=== PATIENT | female | born 2005 | race Caucasian/White ===

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

== ENCOUNTER 2025-05-21 03:23 | Emergency (ER) | payer OTHER ==
[~2025-05-21] VITALS: Ht 175.3 cm; Wt 62.9 kg
[~2025-05-21 03:23] MED LIST changes: +LITHIUM CARBON300 M1
[2025-05-21] MEDS ORDERED: LAMOTRIGINE200 MG PO (03:40)
[2025-05-21 04:11] VITALS: BP 119/88
== END 2025-05-21 04:13 | disposition home or self-care (01) ==
LOC: ED 03:23
DX: Z34.92 Encounter for supervision of normal pregnancy, unspecified, second trimester (principal); Z3A.18 18 weeks gestation of pregnancy; Z79.899 Other long term (current) drug therapy
CPT/HCPCS: 99283

== ENCOUNTER 2025-10-12 05:05 | Inpatient (IN) | payer OTHER ==
[~2025-10-12] VITALS: Ht 175.3 cm; Wt 74.8 kg
[~2025-10-12 05:05] MED LIST changes: +LAMOTRIGINE200 MG PO
[2025-10-12 06:10] LABS: AMNISURE ROM TEST POSITIVE
[2025-10-12] MEDS ORDERED: LACTATED RINGER'S 1,000 ML IV SCH (06:45)
[2025-10-12] MEDS ORDERED: MAGNESIUM HYDROXIDE/AL HYDROX 30 ML CUP PO PRN (06:45)
[2025-10-12] MEDS ORDERED: LACTATED RINGER'S 1,000 ML IV PRN (06:45)
[2025-10-12] MEDS ORDERED: TERBUTALINE SULFATE 1 MG/ML AMP SUB-Q PRN (06:45)
[2025-10-12] MEDS ORDERED: CALCIUM CARBONATE 500 MG CHEW PO PRN (06:45)
[2025-10-12] MEDS ORDERED: OXYTOCIN/0.9 % SODIUM CHLORIDE 30 UNITS/500 ML BAG IV SCH (06:45)
[2025-10-12] MEDS ORDERED: LIDOCAINE HCL 1% 30 ML SDV INJ PRN (06:45)
[2025-10-12 07:03] LABS: MCH 32.5 PG (25.6-32.2); MCHC 34.9 g/dL (32.2-35.5); MCV 93.1 fL (79.4-94.8); RBC 4.19 M/uL (3.93-5.22)
[2025-10-12 07:08] VITALS: BP 109/61
[2025-10-12 07:21] LABS: ABO A; ANTIBODY SCREEN NEGATIVE; RH POSITIVE
[2025-10-13] MEDS ORDERED: SEVOFLURANE 250 ML BTL INH ONE (10:34)
[2025-10-13 16:32] LABS: AMPHETAMINES, URINE NEGATIVE (NEGATIVE); BARBITURATES, URINE NEGATIVE (NEGATIVE); BENZODIAZEPINE, URINE NEGATIVE (NEGATIVE); CANNABINOID, URINE NEGATIVE (NEGATIVE); COCAINE, URINE NEGATIVE (NEGATIVE); ECSTASY, URINE NEGATIVE (NEGATIVE); FENTANYL, URINE NEGATIVE (NEGATIVE); METHADONE, URINE NEGATIVE (NEGATIVE); OPIATES, URINE NEGATIVE (NEGATIVE); OXYCODONE, URINE NEGATIVE (NEGATIVE); PHENCYCLIDINE, URINE NEGATIVE (NEGATIVE)
[2025-10-13] MEDS ORDERED: SUCCINYLCHOLINE IN 0.9% NACL 200 MG/10 ML SYRINGE ONE (18:31)
[2025-10-13] MEDS ORDERED: MIDAZOLAM HCL 2 MG/2 ML VIAL ONE (18:31)
[2025-10-13] MEDS ORDERED: fentaNYL citrate 100 MCG/2 ML VIAL ONE ×2 (18:31→18:56)
[2025-10-13] MEDS ORDERED: ROCURONIUM BROMIDE 50 MG/5 ML SYR ONE (18:33)
[2025-10-13] MEDS ORDERED: AZITHROMYCIN 500 MG VIAL ONE (18:39)
[2025-10-13] MEDS ORDERED: OXYTOCIN 10 UNITS/ML VIAL ONE ×2 (18:40→18:47)
[2025-10-13] MEDS ORDERED: TRANEXAMIC ACID IN NACL,ISO-OS 0 ML IV ONE (18:46)
[2025-10-13] MEDS ORDERED: DEXAMETHASONE SOD PHOS 4 MG/ML VIAL ONE (18:47)
[2025-10-13] MEDS ORDERED: SODIUM CHLORIDE 0.9% 20 ML IV ONE (18:47)
[2025-10-13] MEDS ORDERED: Ropivacaine HCl 0.5% 30 ML VIAL ONE (18:47)
[2025-10-13] MEDS ORDERED: SUGAMMADEX SODIUM 200 MG/2 ML ML ONE (19:06)
[2025-10-13] MEDS ORDERED: PROCHLORPERAZINE EDISYLATE 10 MG/2 ML VIAL IV PRN ×2 (19:45→20:00)
[2025-10-13] MEDS ORDERED: IBLOOD GLUCOSE TEST STRIP 1 EA TEST VI PRN (19:45)
[2025-10-13] MEDS ORDERED: fentaNYL citrate 50 MCG/ML SDV IV PRN (19:45)
[2025-10-13] MEDS ORDERED: NALOXONE HCL 0.4 MG SYR IV PRN (19:45)
[2025-10-13] MEDS ORDERED: HYDROmorphone HCL 1 MG/ML SYR IV PRN (19:45)
[2025-10-13] MEDS ORDERED: MIDAZOLAM HCL 2 MG/2 ML VIAL IV PRN (19:45)
[2025-10-13] MEDS ORDERED: MEPERIDINE HCL 25 MG/1 ML VIAL IV PRN (19:45)
[2025-10-13] MEDS ORDERED: ACETAMINOPHEN 1,000 MG/100 ML VIAL ONE (19:59)
[2025-10-13] MEDS ORDERED: LACTATED RINGER'S 1,000 ML IV SCH (19:59)
[2025-10-13] MEDS ORDERED: OXYCODONE HCL 5 MG TAB PO PRN (20:00)
[2025-10-13] MEDS ORDERED: LIDOCAINE 2% VISCOUS 6 ML SYR TOP ONE (20:00)
[2025-10-13] MEDS ORDERED: HYDROCODONE/ACETA 5/325 TAB PO PRN (20:00)
[2025-10-13] MEDS ORDERED: PROMETHAZINE HCL 25 MG SUPP PR PRN (20:00)
[2025-10-13] MEDS ORDERED: IBUPROFEN 600 MG TAB PO SCH (20:00)
[2025-10-13] MEDS ORDERED: METOCLOPRAMIDE HCL 10 MG/2 ML SDV IV PRN (20:00)
[2025-10-13] MEDS ORDERED: OXYTOCIN/0.9 % SODIUM CHLORIDE 500 ML IV SCH ×3 (20:00→20:30)
[2025-10-13] MEDS ORDERED: PROMETHAZINE HCL 25 MG TAB PO PRN (20:00)
[2025-10-13 20:10] LABS: MCH 31.4 PG (25.6-32.2); MCHC 33.2 g/dL (32.2-35.5); MCV 94.4 fL (79.4-94.8); RBC 4.08 M/uL (3.93-5.22)
[2025-10-13 20:21] LABS: INR 0.95 (0.80-1.30); PROTIME 12.0 Sec (11.2-14.2)
[2025-10-13 20:31] VITALS: BP 119/78
[2025-10-13] MEDS ORDERED: SENNOSIDES/DOCUSATE 1 EA TAB PO SCH (21:00)
[2025-10-13] MEDS ORDERED: SIMETHICONE 80 MG CHEW PO SCH (21:00)
--- NOTE | 2025-10-13 21:12 | NUR ---
10/13/252111 Radha Bowens 1940- PT ARRIVES TO PACU ON BED. PT HAS A NATURAL AIRWAY ON 6L OF O2 VIA MASK. BREATHING IS EVEN AND UNLABORED. FIRST FUNDAL CHECK COMPLETED ON ARRIVAL. PT MOANING IN PAIN WITH THE PRESSURE. LR INFUSING IN L AC THAT WAS PLACED DURING PROCEDURE. ALL MONITORS PUT IN PLACE. PT SHAKING, WARM BLANKETS PROVIDED. 1944- PT IS TEARFUL AND ASKING ABOUT BABY AND CRYING. PT IS COMFORTED BY RN. PT EASILY FALLS BACK TO SLEEP. 1950- O2 TURNED OFF AND REMOVED AT THIS TIME. PT IS ABLE TO MAINTAIN SATS ABOVE 95%. 1954- MORE BLOOD NOTED WITH THIS FUNDAL CHECK. PT IS VERY UNCOMFORTABLE WITH THE PRESSURE BUT UNDERSTANDS WHY WE NEED TO. 1957- PT RATES PAIN A 7/10. OFFIRMEV GIVEN PER FRIEDA TOMAS AT BEDSIDE. 2003- LAB AT BEDSIDE. 2014- FUNDAL CHECK COMPLETED. PADS AND CHUCKS PAD REPLACED AT THIS TIME. STAT LOCK PUT IN PLACE FOR MCKEON THAT IS DRAINING CLEAR, YELLOW URINE. 2044- PT IS TRANSFERED BACK TO HER ROOM IN [facility] [address] VIA BED. BED IS LOCKED AND PLUGGED IN. BEDSIDE REPORT GIVEN TO JANNIE PENA. ALL QUESTIONS AND CONCERNS ANSWERED. VITAL SIGNS OBTAINED. FUNDAL CHECK COMPLETED TOGETHER. DR. MIGUEL AT BEDSIDE TALKING WITH PT. PT IS RESTING WITH EYES CLOSED WITH FIANCE AND SISTER AT BEDSIDE. CARE TURNED OVER AT THIS TIME.
[2025-10-13] MEDS ORDERED: ACETAMINOPHEN 500 MG TAB PO SCH (22:00)
--- NOTE | 2025-10-14 03:10 | OR ---
[address] [address] Signed DATE OF OPERATION: 10/13/2025 SURGEON: Luisana West MD PREOPERATIVE DIAGNOSES: 1. Intrauterine at 38 and 6/7th weeks. 2. Premature rupture of membranes. 3. Nonreassuring surveillance. 4. Desires sterilization. POSTOPERATIVE DIAGNOSES: 1. Intrauterine at 38 and 6/7th weeks. 2. Tight nuchal cord x3. 3. Possible placental abruption. PROCEDURE: Primary low transverse section, bilateral salpingectomy. FINDINGS: Bloody amniotic fluid, viable male infant with triple nuchal cord. Apgars of 9 and 9, weight of 7 pounds 15 ounces. Normal uterus, ovaries, and fallopian tubes otherwise noted. ANESTHESIA: General endotracheal anesthesia. OPERATIONS SUPPORT MANAGER: None. IV FLUIDS: 1 L crystalloid. ESTIMATED/QUANTITATIVE BLOOD LOSS: 1500 mL. URINE OUTPUT: 50 mL of clear urine. DRAINS: Servin to gravity. Electronically Signed By: LUISANA WEST MD 10/14/25 0310 PATIENT NAME: CINTHYA YI OPERATIVE REPORT DATE OF : 04 REPORT #: [id number] PHYSICIAN: LUISANA WEST MD PCP: JOHNNIE ROBERTS PA-C REPORT IS CONFIDENTIAL AND NOT TO BE RELEASED WITHOUT AUTHORIZATION [address] [address] Signed SPECIMENS: Placenta to Pathology. COUNTS: Not performed. X-ray was performed postoperatively and was negative. COMPLICATIONS: None apparent. TECHNIQUE IN DETAIL: With informed consent, the patient was rushed to the operating room, where she was quickly prepped, draped, and put to sleep with rapid sequence and endotracheal intubation. An approximately 8-inch Pfannenstiel skin incision was made and sharp dissection was carried down to the layer of the rectus fascia which was nicked in the midline. This fascial salma was enlarged with a combination of sharp and blunt dissection. The rectus muscles were taken down from the fascia superiorly using sharp and blunt dissection. The rectus muscles were in the midline at the most superior aspect. The peritoneum was entered bluntly and peritoneal opening was enlarged with blunt dissection and a bladder blade was placed. Using a scalpel, low transverse uterine incision was made. The remaining superficial layer of the uterine wall was punctured with surgeon's finger and the site of the hysterotomy was enlarged with blunt dissection in a superior to inferior direction. The surgeon's hand was placed into the lower uterine segment. head was elevated and delivered with fundal pressure. A tight nuchal cord was manually reduced. The cord was clamped x2 and cut and the baby was taken to the warmer by the recovery team. The placenta delivered intact with a 3-vessel cord using fundal massage and gentle traction. The uterus was externalized and the uterine cavity was curetted with laparotomy sponges. We achieved acceptable uterine tone with intravenous oxytocin. 0.2 mg of Methergine intramuscularly and 800 mcg of misoprostol given rectally. The hysterotomy site was then closed with 0 Monocryl in a running locked fashion. A second imbricating layer using 0 Monocryl was also placed in a running fashion. Good hemostasis of the hysterotomy site was noted. The posterior cul-de-sac was cleared of all blood and clot with suction. The hysterotomy site was inspected again and found to be hemostatic. The left fallopian tube was identified and grasped at 2 points with atraumatic clamps. Using the hand-held LigaSure device, we transected the tube approximately 2 cm from the cornu and we cauterized and cut the mesosalpinx laterally just underneath the fallopian tube. Good hemostasis was noted throughout. Same procedure was carried out on the contralateral fallopian tube. Most notably, we Electronically Signed By: LUISANA WEST MD 10/14/25 0310 PATIENT NAME: CINTHYA YI OPERATIVE REPORT DATE OF : 04 REPORT #: [id number] PHYSICIAN: LUISANA WEST MD PCP: JOHNNIE ROBERTS PA-C REPORT IS CONFIDENTIAL AND NOT TO BE RELEASED WITHOUT AUTHORIZATION [facility] [address] [place], [place] [address] Signed followed both fallopian tubes to the fimbriated end to ensure removal of the correct structure. Good hemostasis was noted on both sides after tube removal. The uterus was then returned to the pelvis. The left and right paracolic gutters were then cleared of all blood and clot with moist laparotomy sponges. During this time, we also inspected the mesosalpinx and good hemostasis was noted. The hysterotomy site was inspected 1 final time. Good hemostasis was noted yet again. The rectus muscles and peritoneum were reapproximated using 2-0 chromic in a running fashion. The rectus muscle bellies were inspected and found to be hemostatic. The rectus fascia was reapproximated using 0 Vicryl in a running fashion. Superficial incision was irrigated and rendered hemostatic with electrocautery. The subcutaneous tissue was reapproximated with 2-0 chromic in a running fashion. The skin was reapproximated using an Insorb stapler device. Steri-Strips and Dermabond were placed and a bandage was placed over the wound. At this point, we also performed the portable x-ray of the abdomen and pelvis and this was negative. DISPOSITION: The patient was extubated in the operating room. She was taken to the recovery room in stable condition. Luisana West MD BB/MODL /[id number] Copies: ~ Electronically Signed By: LUISANA WEST MD 10/14/25 0310 PATIENT NAME: CINTHYA YI OPERATIVE REPORT DATE OF : 04 REPORT #: [id number] PHYSICIAN: LUISANA WEST MD PCP: JOHNNIE ROBERTS PA-C REPORT IS CONFIDENTIAL AND NOT TO BE RELEASED WITHOUT AUTHORIZATION
[2025-10-14 05:36] LABS: MCH 31.8 PG (25.6-32.2); MCHC 34.2 g/dL (32.2-35.5); MCV 92.8 fL (79.4-94.8); RBC 3.21 M/uL (3.93-5.22)
[2025-10-14 08:18] LABS: IS CROSSMATCH COMPATIBLE
[2025-10-14] MEDS ORDERED: METHYLERGONOVINE MALEATE 0.2 MG/ML AMP IM ONE (16:58)
[2025-10-14] MEDS ORDERED: CEFAZOLIN SODIUM 2 GM in SODIUM CHLORIDE 0.9% 100 ML IV SCH ×2 (20:00)
--- NOTE | 2025-10-15 18:36 | PR ---
[facility] [address] [place], [place] [address] Signed PP Progress Notes Datetime Report Generated by CPN: 10/15/2025 18:36 SUBJECTIVE: [id number] Pain: Within Normal Limits Pain: Within Normal Limits Pain Comments: Pt wants to make sure her tubes were "tied" Nausea/Vomiting: Denies Nausea/Vomiting: Denies Flatus: Yes Bowel Movement: No Vital Signs: [id number] Vital Signs: Reviewed; Within Normal Limits Vital Signs: Reviewed; Within Normal Limits Cardiovascular: Normal Cardiovascular: Normal Respiratory: Normal Respiratory: Normal Abdomen/Uterus: Normal Abdomen/Uterus: Normal Lochia: Normal Lochia: Normal Vulva/Perineum: Not Done Breasts: Not Done CVA Tenderness: Normal Extremities: Normal Extremities: Normal Incision: Normal Incision: Normal Progress: Normal Exam Comments: Fundus firm U-2 nontender. Incision healing well. IMPRESSION/PLAN/PROCEDURES: [id number] Impression: Normal Progression Impression: Normal Progression Plan: Continue Present Management Plan: Continue Present Management Procedures: None Progress Notes: Pt seen and examined. Doing well. Ambulating, voiding, and tolerating full diet. Pain and lochia minimal. well. No fever/chills. No concerns. Desires d/c home in the AM. Will recheck hemogram in the AM. *Electronically Signed* 10/15/25 1836 VERONICA GAYTAN) DO PATIENT NAME: CINTHYA YI PROGRESS NOTE DATE OF : 04 PHYSICIAN: VERONICA GAYTAN (JD) DO RPT #: [id number] REPORT IS CONFIDENTIAL AND NOT TO BE RELEASED WITHOUT AUTHORIZATION [facility] [address] [facility] [place] [address] Signed Progress Notes: POD #1 s/p emergent C/S for NRFS, s/p bilateral salpingectomy, doing well overall. post-op labs good, UO good Plan: Routine post-op/PP care Signing Physician: Veronica Gaytan DO Copies: ~ *Electronically Signed* 10/15/25 1836 VERONICA GAYTAN) DO PATIENT NAME: CINTHYA YI PROGRESS NOTE DATE OF : 04 PHYSICIAN: VERONICA GAYTAN (JD) DO RPT #: [id number] REPORT IS CONFIDENTIAL AND NOT TO BE RELEASED WITHOUT AUTHORIZATION
[2025-10-16 05:55] LABS: MCH 31.5 PG (25.6-32.2); MCHC 33.1 g/dL (32.2-35.5); MCV 95.3 fL (79.4-94.8); RBC 2.79 M/uL (3.93-5.22)
--- NOTE | 2025-10-16 08:04 | PR ---
[facility] [address] [facility] [place], [place] [address] Signed PP Progress Notes Datetime Report Generated by CPN: 10/16/2025 08:04 Pain: Within Normal Limits Nausea/Vomiting: Denies Flatus: Yes Bowel Movement: No Vital Signs: Reviewed; Within Normal Limits Cardiovascular: Normal Respiratory: Normal Abdomen/Uterus: Normal Lochia: Normal Vulva/Perineum: Not Done Breasts: Not Done CVA Tenderness: Normal Extremities: Normal Incision: Normal Progress: Normal Exam Comments: Fundus firm U-2 nontender Impression: Normal Progression Plan: Discharge Progress Notes: Pt seen and examined. Doing well. Ambulating, voiding, and tolerating full diet. Pain and lochia minimal. well. No lightheadedness/ dizziness. Repeat Hgb 8.8 w/ minimal bleeding. Pt strongly desires d/c home. Reviewed d/c instructions / medications. All questions answered. D/C home witn f/u in office in 2 wks; sooner if needed. Signing Physician: Veronica Gaytan DO Copies: ~ *Electronically Signed* 10/16/25 0804 VERONICA GAYTAN (LISA) DO PATIENT NAME: CINTHYA YI PROGRESS NOTE DATE OF : 04 PHYSICIAN: VERONICA GAYTAN (JD) DO RPT #: [id number] REPORT IS CONFIDENTIAL AND NOT TO BE RELEASED WITHOUT AUTHORIZATION
--- NOTE | 2025-10-16 11:49 | PATH ---
[facility] [address] [place], [place] [address] Signed SPECIMEN(S): A FALLOPIAN TUBES, BILATERAL SPECIMEN(S): B PLACENTA SPECIMEN SOURCE: A. FALLOPIAN TUBES, BILATERAL B. PLACENTA CLINICAL HISTORY: Mother's age: 20. OB history: G one P_ A_ (spontaneous/elective). Gestational age: _. Infant's weight: Nine. score: _. Length of umbilical cord at delivery: _. Rh _ (Rhogam yes/no). Antibody screen: _. Maternal serologies: Rubella _, RPR _, hepatitis screen _, GBS _. Specific issues of concern: _. FINAL PATHOLOGIC DIAGNOSIS: A. Bilateral fallopian tubes: - Two segments of benign fimbriated oviduct. B. Placenta: - Mature 623 g placenta with three-vessel umbilical cord. - Focal mild subchorionitis, negative for significant amnionitis or funisitis. - Focal partial-thickness placental disc infarction comprising less than 10% of placental disc volume. - Villous and perivillous fibrin deposition and calcification. [facility] MICROSCOPIC EXAMINATION: Histologic sections of all submitted blocks are examined by light microscopy. These findings, together with the gross examination, support the pathologic diagnosis. GROSS DESCRIPTION: A. The specimen, labeled and designated "Jeffrey Villarreal, bilateral fallopian tubes," is received in formalin and consists of two undesignated fallopian tubes. Both show fimbria and violaceus and smooth serosa. The first tube measure 9.0 x 1.1 cm. The second fallopian tube measure 6.5 x 1.1 cm. Sectioning through both fallopian tubes is grossly unremarkable. Cassette Summary: (A1) first fallopian tube, industrial sales representative sections (A2-A3) second fallopian tube, industrial sales representative sections B. The specimen, labeled and designated "Jeffrey Villarreal, placenta," is received in formalin and consists of haile discoid placenta with the following PATIENT NAME: CINTHYA YI PATHOLOGY DATE OF : 04 REPORT #: [id number] PHYSICIAN: CATHY PATHOLOGY PCP: JOHNNIE ROBERTS PA-C REPORT IS CONFIDENTIAL AND NOT TO BE RELEASED WITHOUT AUTHORIZATION [facility] [address] [place], [place] [address] Signed parameters: Umbilical cord: Insertion eccentric, measurement 6.5 x 0.8 cm; trivascular. Cord coiling index (per 10 cm): Cannot be determined. Lesions: Not grossly identified. Membranes: Insertion site: Marginal, winston, thick, opaque and slimy. Disrupted. Other: There is only small amount of membranes attached to the placenta or within the container. Chorionic Plate: Normal radiating vascular pattern, blue-purple and shiny. Lesions: Not grossly identified. Other: Not grossly identified. Maternal Surface: Normal cotyledons, intact. Lesions: Not grossly identified. Measurement: 17.9 x 17.1 x 2.0 cm. 623 g Cut Surface: Maroon and spongy. Lesions: Yellow-winston homogenous tissue on placental margin that measure 4.0 x 3.3 x 2.0 cm.. Basal plate fibrin 0.1 cm in thickness. Other Findings: Not grossly identified. Cassette Summary: (B1) umbilical cord and membranes (B2) yellow-winston homogenous tissue, industrial sales representative section (B3) placenta parenchyma (B4) placenta parenchyma JS (under the direct supervision of a pathologist) The Gross Description was prepared using a voice recognition system. The report was reviewed for accuracy; however, sound-alike word errors, addition and/or deletions may occur. If there is any question about this report, please contact Client Services. ADDITIONAL NOTES: Immunohistochemical and/or in situ hybridization studies if performed in this case included appropriate positive controls that reacted as expected. This test was developed and its performance characteristics determined by [facility]. It has not been cleared or approved by the U.S. Food and Drug Administration. The FDA has determined that such clearance or approval is not necessary. This test is used for clinical purposes. It should not be regarded as investigational or for research. [facility] is certified under the Clinical Laboratory Improvement Amendments of 1988 (CLIA) as qualified to perform high complexity clinical laboratory testing. PERFORMING LABORATORY: PATIENT NAME: CINTHYA YI PATHOLOGY DATE OF : 04 REPORT #: [id number] PHYSICIAN: CATHY CARREON PCP: JOHNNIE ROBERTS PA-C REPORT IS CONFIDENTIAL AND NOT TO BE RELEASED WITHOUT AUTHORIZATION [facility] [address] [place], [place] [address] Signed Technical component was performed by [facility], [address] [place] [id number] (CLIA# [id number]). Professional interpretation was performed by [facility] - [address] [place] [address] (CLIA#: [id number]). Diagnostician: Pedro Kuhn MD Pathologist Electronically Signed 10/16/2025 Copies: ~ PATIENT NAME: FRANCESKOKOELYSSA VILLARREALCINTHYA PATHOLOGY DATE OF : 04 REPORT #: [id number] PHYSICIAN: CATHY PATHOLOGY PCP: JOHNNIE ROBERTS PA-C REPORT IS CONFIDENTIAL AND NOT TO BE RELEASED WITHOUT AUTHORIZATION
== END 2025-10-16 11:28 | disposition home or self-care (01) | DRG 784 ==
LOC: FBCO 05:05 → FBC 06:44
PROVIDERS: Obstetrics & Gynecology; ADMIT Obstetrics & Gynecology; ATTEND Obstetrics & Gynecology
PROC: 10D00Z1 Extraction of Products of Conception, Low, Open Approach (ICD-10-PCS; principal; 2025-10-13 19:48)
PROC: 0UT70ZZ Resection of Bilateral Fallopian Tubes, Open Approach (ICD-10-PCS; 2025-10-13 19:48)
PROC: 3E03329 Introduction of Other Anti-infective into Peripheral Vein, Percutaneous Approach (ICD-10-PCS; 2025-10-14)
DX: O42.02 Full-term premature rupture of membranes, onset of labor within 24 hours of rupture (principal); D62 Acute posthemorrhagic anemia; O36.8330 Maternal care for abnormalities of the fetal heart rate or rhythm, third trimester, not applicable or unspecified; Z3A.38 38 weeks gestation of pregnancy; Z37.0 Single live birth; Z30.2 Encounter for sterilization; O69.81X0 Labor and delivery complicated by cord around neck, without compression, not applicable or unspecified; O90.81 Anemia of the puerperium; O99.344 Other mental disorders complicating childbirth; F31.9 Bipolar disorder, unspecified; F90.9 Attention-deficit hyperactivity disorder, unspecified type; Z87.891 Personal history of nicotine dependence; Z98.890 Other specified postprocedural states
CPT/HCPCS: 01961; 36415; 59025; 74018; 80307; 82803; 84112; 85027; 85384; 85610; 85730; 86850; 86900; 86901; 86922; A9270; G0463; J0330; J0456; J0688; J1100; J2210; J2250; J2405; J2590; J2704; J2795; J3010; J3105; J3490; J7121